=== PATIENT | male | born 1995 | race Caucasian/White ===

== ENCOUNTER → 2016-05-13 | Day surgery (SDC) | payer OTHER ==
[~2016-05-13] VITALS: Ht 176.5 cm; Wt 99.3 kg
[~2016-05-13] MED LIST: NORCO 5-325 TA1 EACH PO; PENICILLIN-VK500 M1 PO
--- NOTE | ~2016-05-13 | O ---
[place], [place] OPERATIVE NOTE NAME: GIULIANA HARRIS UNIT #: [id number] ROOM: DOCTOR: JESSICA ORTIZ DMD BIRTHDATE: [birth year] DOS: 05/15/2016 PREOPERATIVE DIAGNOSES: Impacted third molars and pericoronitis and anxiety. POSTOPERATIVE DIAGNOSES: Impacted third molars and pericoronitis and anxiety. ANESTHESIA: General anesthesia with endotracheal intubation. FLUIDS: Minimal. ESTIMATED BLOOD LOSS: Minimal. COMPLICATIONS: None. CONDITION: To PACU, stable. DESCRIPTION OF PROCEDURE: The patient was brought to the OR and placed in supine position. IV and EKG lines were placed. Endotracheal intubation and general anesthesia was administered. The patient was prepped and draped for oral procedures. Risks and benefits were explained to the patient prior to surgery. Clinical exam and x-rays taken determined partial bony impactions of teeth #17 and #32 with pericoronitis around teeth #1 and #32. PROCEDURES PERFORMED: Full thickness flaps in the lower left and lower right quadrants with minimal bone removal and sectioning of tooth #32. Complete extraction of teeth #1, #16, #17 and #32. Lavage x2. Sutured with 4-0 Vicryl, throat pack removed. The patient left the OR in good condition and was sent to PACU. JESSICA ORTIZ DMD CM:OPRECORD:OPERATIVE NOTE [id number] JESSICA ORTIZ DMD 05/15/16 1418 interface
[2016-05-13 08:45] VITALS: BP 129/85
[2016-05-13 10:43] VITALS: BP 145/81
[2016-05-13 10:58] VITALS: BP 145/87
[2016-05-13 11:13] VITALS: BP 131/80
[2016-05-13 11:28] VITALS: BP 125/78
[2016-05-13 11:43] VITALS: BP 132/78
== END | disposition home or self-care (01) ==
LOC: SDC 05-06 11:00
DX: K01.1 Impacted teeth (principal); F41.9 Anxiety disorder, unspecified; K05.30 Chronic periodontitis, unspecified; Z83.3 Family history of diabetes mellitus; F17.210 Nicotine dependence, cigarettes, uncomplicated